=== PATIENT | female | born 1970 | race Caucasian/White ===

== ENCOUNTER 2017-01-04 15:17 | Emergency (ER) | payer OTHER ==
[~2017-01-04] VITALS: Ht 172.7 cm; Wt 109.8 kg
[~2017-01-04 15:17] MED LIST: ALAV10TA10 PO; ATOR10TA15 PO; BACT800T5 PO; CANA300T PO; CART180C4 PO; CYAN1000P SQ; CYCL-36 PO; DOXY100C PO; DULO1CAP3 PO; GABA800T PO; GEMF600 PO; LANTINJ SQ; LEVO50TA4 PO; METO5SOL2 PO; OMEG1CAP53 PO; OXYC1SOL5 PO; PROT40TA PO; RAMI5CAP PO; TAB-TAB PO; TRAM50 PO; VICT18IN SQ; [UNRECOGNIZED DRUG - OTHER] PO
[2017-01-04 15:28] VITALS: BP 147/89; PULSE 102; RESP 18; TEMP 97.5; O2SAT 98
[2017-01-04] MEDS ORDERED: ONDANSETRON HCL 4 MG/2 ML VIAL IV PUSH ONE (15:45)
[2017-01-04] MEDS ORDERED: SODIUM CHLOR 0.9% 1000 ML INJ 1,000 ML IV ONE ×2 (15:45→17:00)
[2017-01-04] MEDS ORDERED: DILT180C56 PO (15:57)
[2017-01-04] MEDS ORDERED: MULT1TAB84 PO (15:57)
[2017-01-04] MEDS ORDERED: LIDO1PAD52 TOPICAL (15:57)
[2017-01-04] MEDS ORDERED: TRAM50TA PO (15:57)
[2017-01-04] MEDS ORDERED: GEMF600T PO (15:57)
[2017-01-04] MEDS ORDERED: HYDR-3535 PO (15:57)
[2017-01-04] MEDS ORDERED: PANT40TA3 PO (15:57)
[2017-01-04] MEDS ORDERED: GABA800T PO (15:57)
[2017-01-04] MEDS ORDERED: ALAV10TA10 PO (15:57)
[2017-01-04] MEDS ORDERED: METO5TAB PO (15:57)
[2017-01-04 16:17] LABS: AUTOMATED NEUTROPHIL # 3.8 TH/MM3 (1.8-7.7); BASOPHIL % 0.5 % (0.0-2.0); EOSINOPHIL # 0.1 TH/MM3 (0-0.4); EOSINOPHIL % 1.2 % (0.0-4.0); HEMATOCRIT 37.4 % (35.0-46.0); HEMO FLAGS DIFF FINAL; LYMPH % 35.3 % (9.0-44.0); LYMPHOCYTE # 2.4 TH/MM3 (1.0-4.8); MEAN CELL VOLUME 85.5 FL (80.0-100.0); MEAN CORPUSCULAR HEMOGLOBIN 28.8 PG (27.0-34.0); MEAN CORPUSCULAR HGB CONC 33.7 % (32.0-36.0); MONO % 6.3 % (0.0-8.0); NEUT % 56.7 % (16.0-70.0); PLATELET COUNT 200 TH/MM3 (150-450); RED BLOOD COUNT 4.38 MIL/MM3 (4.00-5.30); RED CELL DISTRIBUTION WIDTH 14.2 % (11.6-17.2); WHITE BLOOD COUNT 6.7 TH/MM3 (4.0-11.0)
[2017-01-04 16:25] LABS: CHLORIDE 108 MEQ/L (98-107); POTASSIUM 3.7 MEQ/L (3.5-5.1); SODIUM (NA) 140 MEQ/L (136-145)
[2017-01-04 16:28] LABS: ANION GAP 14 MEQ/L (5-15); BICARBONATE 18.2 MEQ/L (21.0-32.0); BLOOD UREA NITROGEN 28 MG/DL (7-18)
[2017-01-04 16:31] LABS: ALT (GPT) 37 U/L (10-53); AST (GOT) 21 U/L (15-37); GLOMERULAR FILTRATION RATE 60 ML/MIN (>89)
[2017-01-04 16:33] LABS: TOTAL BILIRUBIN ADULT 0.3 MG/DL (0.2-1.0)
[2017-01-04 16:34] LABS: ALKALINE PHOSPHATASE 67 U/L (45-117)
[2017-01-04] MEDS ORDERED: LOMO2.5T PO (17:12)
[2017-01-04] MEDS ORDERED: ZOFR4TAB3 SL (17:12)
--- NOTE | 2017-01-04 17:12 | PD ---
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 She has had some nausea and decreased appetite. She denies any fevers or chills. She did take an antibiotic for skin infection and completed it 2 weeks ago. PFSH Past Medical History Cancer: No Cardiovascular Problems: No High Cholesterol: Yes Diabetes: Yes Patient Takes Glucophage: No Diminished Hearing: No Glaucoma: No Genitourinary: Yes (kidney disease) Headaches: Yes Hepatitis: No Hiatal Hernia: No Hypertension: Yes Medical other: No Respiratory: No Immunizations Current: Yes Thyroid Disease: No Influenza Vaccination: Yes ?: Not LMP: MENOPAUSAL Past Surgical History Abdominal Surgery: Yes (APPY) Section: Yes Gynecologic Surgery: Yes (C SECTION) Pacemaker: No Other Surgery: Yes (carpal tunnel, bunyon) Social History Alcohol Use: Yes (OCCASIONAL) Tobacco Use: Yes (ecig) Substance Use: No Allergies-Medications (Allergen,Severity, Reaction): Coded Allergies: No Known Allergies (Verified , 02/16/15) Reported Meds & Prescriptions Reported Meds & Active Scripts Active Reported Lidocaine Patch 12 HR (Lidocaine) 5 % Patch 1 Patch TOPICAL DAILY Remove patch after 12 hours Multivitamin Adults (Multiple Vitamins W/ Minerals) 1 Tab 1 Tab PO DAILY Alavert (Loratadine) 10 Mg Tab 10 Mg PO DAILY Lortab (Hydrocodone-Acetaminophen) 10-325 Mg Tab 1 Tab PO TID Tramadol (Tramadol HCl) 50 Mg Tab 50 Mg PO BID Diltiazem CD 24 HR 180 Mg Caper 180 Mg PO DAILY Metoclopramide (Metoclopramide HCl) 5 Mg Tab 5 Mg PO TIDAC Pantoprazole (Pantoprazole Sodium) 40 Mg Tab 40 Mg PO DAILY Gemfibrozil 600 Mg Tab 600 Mg PO BIDAC Take 30 minutes prior to breakfast and dinner. Gabapentin 800 Mg Tab 1,200 Mg PO HS Atorvastatin (Atorvastatin Calcium) 10 Mg Tab 10 Mg PO HS Duloxetine DR (Duloxetine HCl) 60 Mg Capdr 60 Mg PO BID Invokana (Canagliflozin) 300 Mg Tab 300 Mg PO DAILY Take before 1st meal of day. Lantus Solostar Pen Inj (Insulin Glargine) 300 Unit/3 Ml Pen 1 Units SQ Cyanocobalamin Inj (Cyanocobalamin) 1,000 Mcg/Ml Inj 1,000 Mcg SQ Q30D Gabapentin 800 Mg Tab 800 Mg PO BID Ramipril 5 Mg Cap 5 Mg PO BID Lovaza (Mfhgh-5-Gjrl Ethyl Esters) 1 Gm Cap 1 Gm PO QID Levothyroxine (Levothyroxine Sodium) 50 Mcg Tab 50 Mcg PO DAILY [Ulroc] 80 Mg PO DAILY Review of Systems Except as stated in HPI: all other systems reviewed are Neg Physical Exam Narrative GENERAL:Well appearing, no acute distress SKIN: Focused skin assessment warm and dry. HEAD: Atraumatic. Normocephalic. EYES: Pupils equal and round. No injection or drainage. ENT: Moist mucous membranes NECK: Trachea midline. CARDIOVASCULAR: Regular rate and rhythm. No murmur appreciated. RESPIRATORY: Clear to auscultation. Breath sounds equal bilaterally. GASTROINTESTINAL: Abdomen soft, mildly tender to palpation in the lower abdomen with no rebound or guarding. MUSCULOSKELETAL: No obvious deformities. NEUROLOGICAL: Awake and alert. No obvious cranial nerve deficits. Moving all extremities. PSYCHIATRIC: Appropriate mood and affect; insight and judgment normal. Data Data Last Documented VS Vital Signs Date Time Temp Pulse Resp B/P Pulse Ox O2 Delivery O2 Flow Rate FiO2 01/04/17 15:28 97.5 102 18 147/89 98 Room Air Orders Complete Blood Count With Diff (01/04/17 15:45) Comprehensive Metabolic Panel (01/04/17 15:45) Ondansetron Inj (Zofran Inj) (01/04/17 15:45) Sodium Chlor 0.9% 1000 Ml Inj (Ns 1000 M (01/04/17 15:45) Sodium Chlor 0.9% 1000 Ml Inj (Ns 1000 M (01/04/17 17:00) Labs Laboratory Tests Test 01/04/17 16:00 White Blood Count 6.7 TH/MM3 Red Blood Count 4.38 MIL/MM3 Hemoglobin 12.6 GM/DL Hematocrit 37.4 % Mean Corpuscular Volume 85.5 FL Mean Corpuscular Hemoglobin 28.8 PG Mean Corpuscular Hemoglobin 33.7 % Concent Red Cell Distribution Width 14.2 % Platelet Count 200 TH/MM3 Mean Platelet Volume 7.8 FL Neutrophils (%) (Auto) 56.7 % Lymphocytes (%) (Auto) 35.3 % Monocytes (%) (Auto) 6.3 % Eosinophils (%) (Auto) 1.2 % Basophils (%) (Auto) 0.5 % Neutrophils # (Auto) 3.8 TH/MM3 Lymphocytes # (Auto) 2.4 TH/MM3 Monocytes # (Auto) 0.4 TH/MM3 Eosinophils # (Auto) 0.1 TH/MM3 Basophils # (Auto) 0.0 TH/MM3 CBC Comment DIFF FINAL Differential Comment Sodium Level 140 MEQ/L Potassium Level 3.7 MEQ/L Chloride Level 108 MEQ/L Carbon Dioxide Level 18.2 MEQ/L Anion Gap 14 MEQ/L Blood Urea Nitrogen 28 MG/DL Creatinine 1.00 MG/DL Estimat Glomerular Filtration 60 ML/MIN Rate Random Glucose 109 MG/DL Calcium Level 9.5 MG/DL Total Bilirubin 0.3 MG/DL Aspartate Amino Transf 21 U/L (AST/SGOT) Alanine Aminotransferase 37 U/L (ALT/SGPT) Alkaline Phosphatase 67 U/L Total Protein 7.8 GM/DL Albumin 3.8 GM/DL MDM Medical Decision Making Medical Screen Exam Complete: Yes Emergency Medical Condition: Yes Interpretation(s) Afebrile, mild tachycardia, hypertensive No leukocytosis BUN is slightly elevated Bicarbonate is slightly low Differential Diagnosis Dehydration, electrolyte abnormality, opportunistic infection, C. difficile colitis, gastroenteritis Narrative Course This is a 46-year-old female who presents to the emergency department with copious diarrhea for 2 days. She has a history of renal failure. Labs were obtained and are reassuring with a GFR of 60. She does have a slightly low bicarbonate in the setting of diarrhea. She was given 2 L of IV hydration. I think she can be managed as an outpatient. I considered C. difficile colitis but given her labs are completely normal I think it's unlikely. Her stool was sent for C. difficile and culture. Patient will be discharged on Lomotil and can follow-up with her primary care physician. Diagnosis Primary Impression: Diarrhea Qualified Code: A09 - Diarrhea of presumed infectious origin Patient Instructions: General Instructions Additional Instructions: If you develop severe or worsening abdominal pain, fever>100.4, persistent vomiting or inability to eat or drink return to the emergency department immediately. Follow up with your primary care physician in 1-2 days for a check-up. Med/Other Pt SpecificInfo: Prescription(s) given Scripts Ondansetron Odt (Zofran Odt)4 Mg Tab4 Mg SL Q6HR PRN (Nausea/Vomiting) #14 TAB Ref 0 Prov:Jahaira Vaughn MD 01/04/17 Diphenoxylate-Atropine (Lomotil)2.5-0.025 Mg Tab1 Tab PO Q6H PRN (DIARRHEA) #12 TAB Ref 0 Prov:Jahaira Vaughn MD 01/04/17 Disposition: 01 DISCHARGE HOME Condition: Stable Jahaira Vaughn MD Jan 04, 2017 17:12
[2017-01-04 17:57] VITALS: BP 145/69; PULSE 87; RESP 16; O2SAT 95
[2017-01-05 08:59] LABS: C. DIFF EPI 027 INVALID (NEGATIVE); C. DIFF TOXIN PCR INVALID (NEGATIVE)
== END 2017-01-04 18:25 | disposition home or self-care (01) ==
LOC: PHED 15:17
DX: A09 Infectious gastroenteritis and colitis, unspecified (principal); I10 Essential (primary) hypertension; E11.9 Type 2 diabetes mellitus without complications; N19 Unspecified kidney failure; E78.00 Pure hypercholesterolemia, unspecified; Z72.0 Tobacco use; Z79.4 Long term (current) use of insulin; Z87.448 Personal history of other diseases of urinary system
CPT/HCPCS: 80053; 85025; 87493; 87506; 96361; 96374; 99284; J2405; J7030

== ENCOUNTER 2017-05-08 20:58 | Emergency (ER) | payer OTHER ==
[~2017-05-08] VITALS: Ht 172.7 cm; Wt 115.0 kg
[~2017-05-08 20:58] MED LIST changes: -BACT800T5 PO; -CART180C4 PO; -CYCL-36 PO; +DILT180C56 PO; -DOXY100C PO; -GEMF600 PO; +GEMF600T PO; +HYDR-3535 PO; +LIDO1PAD52 TOPICAL; +LOMO2.5T PO; -METO5SOL2 PO; +METO5TAB PO; +MULT1TAB84 PO; -OXYC1SOL5 PO; +PANT40TA3 PO; -PROT40TA PO; -TAB-TAB PO; -TRAM50 PO; +TRAM50TA PO; -VICT18IN SQ; +ZOFR4TAB3 SL
[2017-05-08 21:09] VITALS: BP 123/71; PULSE 95; RESP 16; TEMP 98.5; O2SAT 97
[2017-05-08] MEDS ORDERED: DILT120C9 PO (21:21)
[2017-05-08] MEDS ORDERED: ULOR80TA2 (21:21)
[2017-05-08] MEDS ORDERED: GABA800T PO (21:22)
[2017-05-08] MEDS ORDERED: SODI650T PO (21:24)
[2017-05-08] MEDS ORDERED: PROG100C PO (21:24)
[2017-05-08] MEDS ORDERED: CLINDAMYCIN INJ 900 MG in SODIUM CHLORIDE 0.9% INJ 100 ML IV ONE (21:30)
[2017-05-08 21:42] LABS: AUTOMATED NEUTROPHIL # 3.6 TH/MM3 (1.8-7.7); BASOPHIL % 0.4 % (0.0-2.0); EOSINOPHIL # 0.1 TH/MM3 (0-0.4); EOSINOPHIL % 1.1 % (0.0-4.0); HEMATOCRIT 32.2 % (35.0-46.0); HEMO FLAGS DIFF FINAL; LYMPH % 39.8 % (9.0-44.0); LYMPHOCYTE # 2.6 TH/MM3 (1.0-4.8); MEAN CELL VOLUME 86.5 FL (80.0-100.0); MEAN CORPUSCULAR HEMOGLOBIN 29.2 PG (27.0-34.0); MEAN CORPUSCULAR HGB CONC 33.8 % (32.0-36.0); MONO % 5.9 % (0.0-8.0); NEUT % 52.8 % (16.0-70.0); PLATELET COUNT 201 TH/MM3 (150-450); RED BLOOD COUNT 3.73 MIL/MM3 (4.00-5.30); RED CELL DISTRIBUTION WIDTH 13.6 % (11.6-17.2); WHITE BLOOD COUNT 6.7 TH/MM3 (4.0-11.0)
[2017-05-08 21:48] LABS: POTASSIUM 4.4 MEQ/L (3.5-5.1)
[2017-05-08 21:51] LABS: BICARBONATE 22.5 MEQ/L (21.0-32.0)
[2017-05-08] MEDS ORDERED: CLIN1CAP5 PO (21:52)
--- NOTE | 2017-05-08 21:52 | PD ---
HPI Chief Complaint: Pain: Acute or Chronic Time Seen by Provider: 21:13 Travel History International Travel<30 days: No Contact w/Intl Traveler<30days: No Traveled to known affect area: No History of Present Illness HPI 47-year-old female complains of pain in the right medial thigh for about 3 days. It started gradually with a deep sensation of pain in the right thigh. Over the past 24-48 hours erythema has formed over the anterior medial aspect of the thigh which has become tender to palpation. takes progesterone and uses a estrogen gel. She denies any prior history of DVT. She was seen urgent care center and was advised to come here for a rule out DVT type of evaluation. No fever. Timing constant. Severity moderate. PFSH Past Medical History Cancer: No Cardiovascular Problems: No High Cholesterol: Yes Diabetes: Yes Patient Takes Glucophage: No Diminished Hearing: No Glaucoma: No Genitourinary: Yes (kidney disease) Headaches: Yes Hepatitis: No Hiatal Hernia: No Hypertension: Yes Respiratory: No Immunizations Current: Yes Thyroid Disease: No Tetanus Vaccination: Unknown Influenza Vaccination: Yes ?: Not Menopausal: Yes Past Surgical History Abdominal Surgery: Yes (APPY) Section: Yes Gynecologic Surgery: Yes (C SECTION) Pacemaker: No Other Surgery: Yes (carpal tunnel, bunyon) Social History Alcohol Use: Yes (OCCASIONAL) Tobacco Use: Yes (ecig) Substance Use: No Allergies-Medications (Allergen,Severity, Reaction): Coded Allergies: No Known Allergies (Verified , 05/08/17) Reported Meds & Prescriptions Reported Meds & Active Scripts Active Clindamycin (Clindamycin HCl) 150 Mg Cap 450 Mg PO Q8HR 10 Days Zofran Odt (Ondansetron Odt) 4 Mg Tab 4 Mg SL Q6HR PRN Lomotil (Diphenoxylate-Atropine) 2.5-0.025 Mg Tab 1 Tab PO Q6H PRN Reported Sodium Bicarbonate 650 Mg Tab 650 Mg PO TIDPC Progesterone Micronized 100 Mg Cap 100 Mg PO DAILY Gabapentin 800 Mg Tab 800 Mg PO TID Uloric (Febuxostat) 80 Mg Tab Diltiazem ER 12 HR (Diltiazem HCl) 120 Mg Caper 180 Mg PO BID Lidocaine Patch 12 HR (Lidocaine) 5 % Patch 1 Patch TOPICAL DAILY Remove patch after 12 hours Lortab (Hydrocodone-Acetaminophen) 10-325 Mg Tab 1 Tab PO TID Tramadol (Tramadol HCl) 50 Mg Tab 50 Mg PO BID Metoclopramide (Metoclopramide HCl) 5 Mg Tab 5 Mg PO TIDAC Pantoprazole (Pantoprazole Sodium) 40 Mg Tab 40 Mg PO DAILY Gemfibrozil 600 Mg Tab 600 Mg PO BIDAC Take 30 minutes prior to breakfast and dinner. Atorvastatin (Atorvastatin Calcium) 10 Mg Tab 10 Mg PO HS Duloxetine DR (Duloxetine HCl) 60 Mg Capdr 60 Mg PO BID Invokana (Canagliflozin) 300 Mg Tab 300 Mg PO DAILY Take before 1st meal of day. Lantus Solostar Pen Inj (Insulin Glargine) 300 Unit/3 Ml Pen 1 Units SQ Cyanocobalamin Inj (Cyanocobalamin) 1,000 Mcg/Ml Inj 1,000 Mcg SQ Q30D Ramipril 5 Mg Cap 5 Mg PO BID Lovaza (Unyjq-5-Qyth Ethyl Esters) 1 Gm Cap 1 Gm PO QID Levothyroxine (Levothyroxine Sodium) 50 Mcg Tab 50 Mcg PO DAILY Review of Systems Except as stated in HPI: all other systems reviewed are Neg General / Constitutional: No: Fever Physical Exam Narrative GENERAL: 47-year-old female well-nourished well-developed mild distress secondary to pain SKIN: Warm and dry. HEAD: Atraumatic. Normocephalic. EYES: Pupils equal and round. No scleral icterus. No injection or drainage. ENT: No nasal bleeding or discharge. Mucous membranes pink and moist. NECK: Trachea midline. No JVD. CARDIOVASCULAR: Regular rate and rhythm. RESPIRATORY: No accessory muscle use. Clear to auscultation. Breath sounds equal bilaterally. GASTROINTESTINAL: Abdomen soft, non-tender, nondistended. Hepatic and splenic margins not palpable. MUSCULOSKELETAL: Extremities without clubbing, cyanosis. No obvious deformities. There is a confluent area of erythema overlying the anterior and medial right thigh from the region of the inguinal crease to about the medial condyle. The area is somewhat indurated and tender. There is no fluctuance. NEUROLOGICAL: Awake and alert. No obvious cranial nerve deficits. Motor grossly within normal limits. Five out of 5 muscle strength in the arms and legs. Normal speech. PSYCHIATRIC: Appropriate mood and affect; insight and judgment normal. Data Data Last Documented VS Vital Signs Date Time Temp Pulse Resp B/P Pulse Ox O2 Delivery O2 Flow Rate FiO2 05/08/17 23:01 90 16 114/61 95 05/08/17 21:09 98.5 Vital signs reviewed Orders Basic Metabolic Panel (Bmp) (05/08/17 21:20) Complete Blood Count With Diff (05/08/17 21:20) Iv Access Insert/Monitor (05/08/17 21:20) Clindamycin Inj (Cleocin Inj) (05/08/17 21:30) Us Leg Venous Doppler (05/08/17 ) Labs Laboratory Tests Test 05/08/17 21:38 White Blood Count 6.7 TH/MM3 Red Blood Count 3.73 MIL/MM3 Hemoglobin 10.9 GM/DL Hematocrit 32.2 % Mean Corpuscular Volume 86.5 FL Mean Corpuscular Hemoglobin 29.2 PG Mean Corpuscular Hemoglobin 33.8 % Concent Red Cell Distribution Width 13.6 % Platelet Count 201 TH/MM3 Mean Platelet Volume 7.4 FL Neutrophils (%) (Auto) 52.8 % Lymphocytes (%) (Auto) 39.8 % Monocytes (%) (Auto) 5.9 % Eosinophils (%) (Auto) 1.1 % Basophils (%) (Auto) 0.4 % Neutrophils # (Auto) 3.6 TH/MM3 Lymphocytes # (Auto) 2.6 TH/MM3 Monocytes # (Auto) 0.4 TH/MM3 Eosinophils # (Auto) 0.1 TH/MM3 Basophils # (Auto) 0.0 TH/MM3 CBC Comment DIFF FINAL Differential Comment Sodium Level 134 MEQ/L Potassium Level 4.4 MEQ/L Chloride Level 103 MEQ/L Carbon Dioxide Level 22.5 MEQ/L Anion Gap 9 MEQ/L Blood Urea Nitrogen 26 MG/DL Creatinine 1.30 MG/DL Estimat Glomerular Filtration 44 ML/MIN Rate Random Glucose 223 MG/DL Calcium Level 9.1 MG/DL MDM Medical Decision Making Medical Screen Exam Complete: Yes Emergency Medical Condition: Yes Medical Record Reviewed: Yes Differential Diagnosis Cellulitis, DVT, abscess, myositis, thrombophlebitis Narrative Course CBC & BMP Diagram 05/08/17 21:38 Renal insufficiency is known to patient. Last 24 hours Impressions Lower Extremity Ultrasound 05/08/17 0000 Signed Impressions: Service Date/Time: Monday, May 08, 2017 22:10 - CONCLUSION: The study is negative for deep venous thrombosis right lower extremity. Nba Ulloa MD Presentation most in keeping with a cellulitis. Clindamycin 900mg iv here with script to go. Return precautions discussed. Diagnosis Primary Impression: Cellulitis Qualified Code: L03.115 - Cellulitis of right lower extremity Referrals: Primary Care Physician 2 days Additional Instructions: You have a choice when it comes to health care, and we are glad that you chose [facility]. Hopefully, we have met your expectations on today's visit. You are welcome to return to [facility] at any time, as we are committed to meeting the health care needs of our community. Med/Other Pt SpecificInfo: Prescription(s) given Scripts Clindamycin 150 Mg [id number] Mg PO Q8HR 10 Days Ref 0 Prov:Genaro Ruth MD 05/08/17 Disposition: 01 DISCHARGE HOME Condition: Stable Genaro Ruth MD May 08, 2017 21:52
--- NOTE | 2017-05-08 22:53 | RADRPT ---
EXAM DATE/TIME: 05/08/2017 22:10 [facility] COMPARISON: No previous studies available for comparison. INDICATIONS : Right leg swelling. MEDICAL HISTORY : Hypercholesterolemia. Hypertension. Kidney disease. Headache. Proteinuria. Diabetes. SURGICAL HISTORY : Appendectomy. section. Carpal tunnel syndrome. Right knee arthroscopy. ENCOUNTER: Initial ACUITY: 4 - 6 days PAIN SCORE: 8/10 LOCATION: Right TECHNIQUE: Venous ultrasound of the leg was performed from the inguinal ligament to the proximal calf. Real-trina e, color Doppler and spectral tracing, compression and augmentation techniques were used. FINDINGS: There is normal compressibility of the deep venous system from the inguinal region to the proximal ca lf. No echogenic clot is seen in the lumen of the common femoral, femoral, popliteal, and posterior tibial veins. There is a normal response of the venous system to proximal and distal augmentation an d respiration. Several sonographically normal appearing inguinal lymph nodes measure up to 3 cm. CONCLUSION: The study is negative for deep venous thrombosis right lower extremity. Nba Ulloa MD on May 08, 2017 at 22:51 Board Certified Radiologist. This report was verified electronically.
[2017-05-08 23:01] VITALS: BP 114/61
== END 2017-05-08 23:13 | disposition home or self-care (01) ==
LOC: PHED 20:58
DX: L03.115 Cellulitis of right lower limb (principal); E11.9 Type 2 diabetes mellitus without complications; I10 Essential (primary) hypertension; E78.00 Pure hypercholesterolemia, unspecified; Z72.0 Tobacco use; Z79.4 Long term (current) use of insulin; Z86.79 Personal history of other diseases of the circulatory system; Z87.448 Personal history of other diseases of urinary system
CPT/HCPCS: 80048; 85025; 93971; 96365

== ENCOUNTER 2018-02-04 08:40 | Inpatient (IN) | payer OTHER ==
[~2018-02-04] VITALS: Ht 172.7 cm; Wt 112.5 kg
[2018-02-04] VITALS (9 sets, daily range): BP systolic 147–180; BP diastolic 79–99; PULSE 87–104; RESP 16–20; TEMP 97.6–98.6; O2SAT 94–98
[~2018-02-04 08:40] MED LIST changes: -ALAV10TA10 PO; +CLIN150C14 PO; +DILT120C9 PO; -DILT180C56 PO; -MULT1TAB84 PO; +PROG100C PO; +SODI650T PO; +ULOR80TA2; -[UNRECOGNIZED DRUG - OTHER] PO
[2018-02-04] MEDS ORDERED: RAMI5CAP PO (09:06)
[2018-02-04] MEDS ORDERED: PANT40TA3 PO (09:06)
[2018-02-04] MEDS ORDERED: VICT18IN SQ (09:06)
[2018-02-04] MEDS ORDERED: OXYC1TAB36 PO (09:06)
[2018-02-04] MEDS ORDERED: ESTR0.5T3 PO (09:06)
[2018-02-04] MEDS ORDERED: CYCL10TA PO (09:06)
[2018-02-04] MEDS ORDERED: KETOROLAC TROMETHAMINE 60 MG/2 ML (IM) VIAL IM ONE (09:30)
[2018-02-04] MEDS ORDERED: DIAZEPAM 5 MG TAB PO ONE (09:30)
--- NOTE | 2018-02-04 09:38 | PD ---
HPI Chief Complaint: Musculoskeletal Complaint Time Seen by Provider: 09:09 Travel History International Travel<30 days: No Contact w/Intl Traveler<30days: No Traveled to known affect area: No History of Present Illness HPI This is a 48-year-old female here with upper back and bilateral arm pain 4 days. She denies injury or trauma. She reports the pain as constant aching. Pain starts in her trapezius muscles and radiates to her jaws bilaterally, across her chest, and upper extremities. She had one episode of nausea and vomiting due to pain last night. Does have a history of chronic back pain but reports this pain feels different. She took a muscle relaxer yesterday evening with minimal relief. No fever, chills, shortness of breath, paresthesia or weakness of the extremities. Symptom severity is moderate. No aggravating or alleviating factors. Cardiac risk factors: Hypertension, dyslipidemia, diabetes, smoker PCP: Dr. Glover No prior stress tests or cardiac catheterization PFSH Past Medical History Narrative Medical Significant for hypertension, dyslipidemia, diabetes, hypothyroidism Cancer: No Cardiovascular Problems: No High Cholesterol: Yes Diabetes: Yes Patient Takes Glucophage: No Diminished Hearing: No Glaucoma: No Genitourinary: Yes (kidney disease) Headaches: Yes Hepatitis: No Hiatal Hernia: No Hypertension: Yes Medical other: No Respiratory: No Immunizations Current: Yes Thyroid Disease: No Tetanus Vaccination: Unknown ?: Not Menopausal: Yes Past Surgical History Abdominal Surgery: Yes (APPY) Section: Yes Gynecologic Surgery: Yes (C SECTION) Pacemaker: No Other Surgery: Yes (carpal tunnel, bunyon) Social History Alcohol Use: Yes (OCCASIONAL) Tobacco Use: Yes (ecig) Substance Use: No Allergies-Medications (Allergen,Severity, Reaction): Coded Allergies: No Known Allergies (Verified Adverse Reaction, Unknown, 02/04/18) Reported Meds & Prescriptions Reported Meds & Active Scripts Active Reported Estrace (Estradiol) 0.5 Mg Tab 0.5 Mg PO DAILY Victoza Inj (Liraglutide Inj) 18 Mg/3 Ml Pen 1.8 Mg SQ DAILY Oxycodone-Acetaminophen 10-325 mg Tab 1 Tab PO Q8HR PRN Ramipril 5 Mg Cap 5 Mg PO DAILY Flexeril (Cyclobenzaprine HCl) 10 Mg Tab 10 Mg PO BID Pantoprazole (Pantoprazole Sodium) 40 Mg Tab 40 Mg PO BID Progesterone Micronized 100 Mg Cap 100 Mg PO DAILY Gabapentin 800 Mg Tab 800 Mg PO TID Uloric (Febuxostat) 80 Mg Tab Lidocaine Patch 12 HR (Lidocaine) 5 % Patch 1 Patch TOPICAL DAILY Remove patch after 12 hours Tramadol (Tramadol HCl) 50 Mg Tab 50 Mg PO BID Metoclopramide (Metoclopramide HCl) 5 Mg Tab 5 Mg PO TIDAC Atorvastatin (Atorvastatin Calcium) 10 Mg Tab 10 Mg PO HS Duloxetine DR (Duloxetine HCl) 60 Mg Capdr 60 Mg PO BID Invokana (Canagliflozin) 300 Mg Tab 300 Mg PO DAILY Take before 1st meal of day. Lantus Solostar Pen Inj (Insulin Glargine) 300 Unit/3 Ml Pen 1 Units SQ Cyanocobalamin Inj (Cyanocobalamin) 1,000 Mcg/Ml Inj 1,000 Mcg SQ Q30D Lovaza (Rwybo-8-Soop Ethyl Esters) 1 Gm Cap 1 Gm PO QID Levothyroxine (Levothyroxine Sodium) 50 Mcg Tab 50 Mcg PO DAILY Review of Systems Except as stated in HPI: all other systems reviewed are Neg General / Constitutional: No: Fever Eyes: No: Visual changes HENT: No: Headaches Cardiovascular: Positive: Chest Pain or Discomfort Respiratory: No: Shortness of Breath Gastrointestinal: Positive: Vomiting, No: Abdominal Pain Genitourinary: No: Dysuria Skin: No Rash Neurologic: No: Weakness Physical Exam Narrative GENERAL: Alert female in moderate distress. SKIN: Warm and dry. No diaphoresis HEAD: Normocephalic. EYES: No scleral icterus. No injection or drainage. NECK: Supple, trachea midline. No JVD or lymphadenopathy. + Acute tenderness to light touch of bilateral trapezius muscles. CARDIOVASCULAR: Regular rate and rhythm without murmurs, gallops, or rubs. RESPIRATORY: Breath sounds equal bilaterally. No accessory muscle use. GASTROINTESTINAL: Abdomen soft, non-tender, nondistended. MUSCULOSKELETAL: No cyanosis, or edema. Palpable and equal pulses in all extremities BACK: No cervical, thoracic, lumbar spine tenderness. Without obvious deformity. No CVA tenderness. Data Data Last Documented VS Vital Signs Date Time Temp Pulse Resp B/P (MAP) Pulse Ox O2 Delivery O2 Flow Rate FiO2 02/04/18 11:03 95 20 153/79 (103) 97 Nasal Cannula 2.00 02/04/18 08:47 97.6 Orders Orders Electrocardiogram (02/04/18 ) Ketorolac Inj (Toradol Inj) (02/04/18 09:30) Diazepam (Valium) (02/04/18 09:30) Basic Metabolic Panel (Bmp) (02/04/18 09:48) Ckmb (Isoenzyme) Profile (02/04/18 09:48) Complete Blood Count With Diff (02/04/18 09:48) Prothrombin Time / Inr (Pt) (02/04/18 09:48) Act Partial Throm Time (Ptt) (02/04/18 09:48) Troponin I (02/04/18 09:48) Chest, Single Ap (02/04/18 09:48) Bilateral Bp Monitoring (02/04/18 09:48) Iv Access Insert/Monitor (02/04/18 09:48) Aspirin (Aspirin) (02/04/18 10:45) CKMB (02/04/18 09:55) CKMB% (02/04/18 09:55) Nitroglycerin 2% Oint (Nitroglycerin 2% (02/04/18 10:45) Heparin Inj (Heparin Inj) (02/04/18 11:00) Heparin Inj (Heparin Inj) (02/04/18 17:00) Heparin Inj (Heparin Inj) (02/04/18 17:00) Heparin-D5w 25,000 U/250 Ml (Heparin-D5w (02/04/18 11:00) Cbc No Diff, Includes Plts (02/07/18 06:00) Act Partial Throm Time (Ptt) (02/04/18 17:47) Occult Blood (Hemoccult) Stool (02/04/18 10:47) Electrocardiogram (02/04/18 10:17) NPO (02/04/18 10:54) Metoprolol Tartrate Inj (Lopressor Inj) (02/04/18 11:00) Cardiac Catheterization (02/04/18 ) Admit Order (Ed Use Only) (02/04/18 11:05) Labs Laboratory Tests Test 02/04/18 09:55 White Blood Count 10.1 TH/MM3 Red Blood Count 4.56 MIL/MM3 Hemoglobin 13.3 GM/DL Hematocrit 38.4 % Mean Corpuscular Volume 84.2 FL Mean Corpuscular Hemoglobin 29.1 PG Mean Corpuscular Hemoglobin Concent 34.5 % Red Cell Distribution Width 14.4 % Platelet Count 105 TH/MM3 Mean Platelet Volume 7.8 FL CBC Comment AUTO DIFF Differential Total Cells Counted 100 Neutrophils % (Manual) 84 % Band Neutrophils % 1 % Lymphocytes % 11 % Monocytes % 3 % Eosinophils % 1 % Neutrophils # (Manual) 8.6 TH/MM3 Differential Comment FINAL DIFF MANUAL Platelet Estimate LOW Platelet Morphology Comment NORMAL Prothrombin Time 9.7 SEC Prothromb Time International Ratio 1.0 RATIO Activated Partial Thromboplast Time 25.3 SEC Blood Urea Nitrogen 22 MG/DL Creatinine 0.80 MG/DL Random Glucose 170 MG/DL Calcium Level 8.6 MG/DL Sodium Level 133 MEQ/L Potassium Level 4.3 MEQ/L Chloride Level 102 MEQ/L Carbon Dioxide Level 19.9 MEQ/L Anion Gap 11 MEQ/L Estimat Glomerular Filtration Rate 77 ML/MIN Total Creatine Kinase 525 U/L Creatine Kinase MB 59.3 NG/ML Creatine Kinase MB % 11.3 % Troponin I 5.69 NG/ML MDM Medical Decision Making Medical Screen Exam Complete: Yes Emergency Medical Condition: Yes Interpretation(s) EKG: Reviewed with Dr. Baker Differential Diagnosis ACS, muscle skeletal back pain, other Narrative Course 48-year-old female here with upper back, jaw, chest pain. Symptoms been present for 4 days with increased frequency and intensity over the last 12 hours. Teresa Rendon February 04, 2018 09:38
[2018-02-04 10:01] LABS: HEMATOCRIT 38.4 % (35.0-46.0); HEMOGLOBIN 13.3 GM/DL (11.6-15.3); MEAN CELL VOLUME 84.2 FL (80.0-100.0); MEAN CORPUSCULAR HEMOGLOBIN 29.1 PG (27.0-34.0); MEAN CORPUSCULAR HGB CONC 34.5 % (32.0-36.0); MEAN PLATELET VOLUME 7.8 FL (7.0-11.0); PLATELET COUNT 105 TH/MM3 (150-450); RED BLOOD COUNT 4.56 MIL/MM3 (4.00-5.30); RED CELL DISTRIBUTION WIDTH 14.4 % (11.6-17.2); WHITE BLOOD COUNT 10.1 TH/MM3 (4.0-11.0)
--- NOTE | 2018-02-04 10:06 | RADRPT ---
EXAM DATE/TIME: 02/04/2018 09:57 [facility] COMPARISON: No previous studies available for comparison. INDICATIONS : Chest pain, pain down both arms and in back. MEDICAL HISTORY : Hypertension. Diabetes mellitus type II. SURGICAL HISTORY : None. ENCOUNTER: Initial ACUITY: 4 - 6 days PAIN SCORE: 10/10 LOCATION: Bilateral chest FINDINGS: Portable AP view of the chest demonstrates a normal-sized cardiac silhouette. No effusion, consolidat ion, or pneumothorax is visualized. The bones and soft tissues demonstrate no acute abnormality. Lung s are mildly underinflated. CONCLUSION: No acute cardiopulmonary abnormality is identified. Eliazar Joy MD on February 04, 2018 at 10:03 Board Certified Radiologist. This report was verified electronically.
[2018-02-04 10:12] LABS: CALCIUM 8.6 MG/DL (8.5-10.1); PROTHROMBIN TIME - PATIENT 9.7 SEC (9.8-11.6)
[2018-02-04 10:13] LABS: BICARBONATE 19.9 MEQ/L (21.0-32.0)
[2018-02-04 10:19] LABS: CREATININE 0.8 MG/DL (0.50-1.00)
[2018-02-04 10:27] LABS: BANDS 1 % (0-6); LYMPHOCYTES 11 % (9-44); MONOCYTES 3 % (0-8); NEUTROPHIL # MANUAL DIFF 8.6 TH/MM3 (1.8-7.7); POLYS (SEG NEUTROPHILS) 84 % (16-70)
[2018-02-04 10:39] LABS: TROPONIN I 5.69 NG/ML (0.02-0.05)
[2018-02-04] MEDS ORDERED: ASPIRIN 325 MG TAB PO ONE (10:45)
[2018-02-04] MEDS ORDERED: NITROGLYCERIN 2% OINT 1 GM PACKET TOP ONE (10:45)
--- NOTE | 2018-02-04 10:47 | PD ---
Physical Exam Narrative GENERAL: SKIN: Warm and dry. HEAD: Atraumatic. Normocephalic. EYES: Pupils equal and round. No scleral icterus. No injection or drainage. ENT: No nasal bleeding or discharge. Mucous membranes pink and moist. NECK: Trachea midline. No JVD. CARDIOVASCULAR: Regular rate and rhythm. RESPIRATORY: No accessory muscle use. Clear to auscultation. Breath sounds equal bilaterally. GASTROINTESTINAL: Abdomen soft, non-tender, nondistended. MUSCULOSKELETAL: Extremities without clubbing, cyanosis, or edema. No obvious deformities. NEUROLOGICAL: Awake and alert. No obvious cranial nerve deficits. Motor grossly within normal limits. Five out of 5 muscle strength in the arms and legs. Normal speech. PSYCHIATRIC: Appropriate mood and affect; insight and judgment normal. Data Data Last Documented VS Vital Signs Date Time Temp Pulse Resp B/P (MAP) Pulse Ox O2 Delivery O2 Flow Rate FiO2 02/04/18 08:47 97.6 90 16 180/97 (124) 98 Orders Orders Electrocardiogram (02/04/18 ) Ketorolac Inj (Toradol Inj) (02/04/18 09:30) Diazepam (Valium) (02/04/18 09:30) Basic Metabolic Panel (Bmp) (02/04/18 09:48) Ckmb (Isoenzyme) Profile (02/04/18 09:48) Complete Blood Count With Diff (02/04/18 09:48) Prothrombin Time / Inr (Pt) (02/04/18 09:48) Act Partial Throm Time (Ptt) (02/04/18 09:48) Troponin I (02/04/18 09:48) Chest, Single Ap (02/04/18 09:48) Bilateral Bp Monitoring (02/04/18 09:48) Iv Access Insert/Monitor (02/04/18 09:48) Aspirin (Aspirin) (02/04/18 10:45) CKMB (02/04/18 09:55) CKMB% (02/04/18 09:55) Nitroglycerin 2% Oint (Nitroglycerin 2% (02/04/18 10:45) Heparin Inj (Heparin Inj) (02/04/18 11:00) Heparin Inj (Heparin Inj) (02/04/18 17:00) Heparin Inj (Heparin Inj) (02/04/18 17:00) Heparin-D5w 25,000 U/250 Ml (Heparin-D5w (02/04/18 11:00) Act Partial Throm Time (Ptt) (02/04/18 10:47) Cbc No Diff, Includes Plts (02/04/18 10:47) Cbc No Diff, Includes Plts (02/07/18 06:00) Act Partial Throm Time (Ptt) (02/04/18 17:47) Occult Blood (Hemoccult) Stool (02/04/18 10:47) Electrocardiogram (02/04/18 10:17) NPO (02/04/18 10:54) Metoprolol Tartrate Inj (Lopressor Inj) (02/04/18 11:00) Labs Laboratory Tests Test 02/04/18 09:55 White Blood Count 10.1 TH/MM3 Red Blood Count 4.56 MIL/MM3 Hemoglobin 13.3 GM/DL Hematocrit 38.4 % Mean Corpuscular Volume 84.2 FL Mean Corpuscular Hemoglobin 29.1 PG Mean Corpuscular Hemoglobin Concent 34.5 % Red Cell Distribution Width 14.4 % Platelet Count 105 TH/MM3 Mean Platelet Volume 7.8 FL CBC Comment AUTO DIFF Differential Total Cells Counted 100 Neutrophils % (Manual) 84 % Band Neutrophils % 1 % Lymphocytes % 11 % Monocytes % 3 % Eosinophils % 1 % Neutrophils # (Manual) 8.6 TH/MM3 Differential Comment FINAL DIFF MANUAL Platelet Estimate LOW Platelet Morphology Comment NORMAL Prothrombin Time 9.7 SEC Prothromb Time International Ratio 1.0 RATIO Activated Partial Thromboplast Time 25.3 SEC Blood Urea Nitrogen 22 MG/DL Creatinine 0.80 MG/DL Random Glucose 170 MG/DL Calcium Level 8.6 MG/DL Sodium Level 133 MEQ/L Potassium Level 4.3 MEQ/L Chloride Level 102 MEQ/L Carbon Dioxide Level 19.9 MEQ/L Anion Gap 11 MEQ/L Estimat Glomerular Filtration Rate 77 ML/MIN Total Creatine Kinase 525 U/L Troponin I 5.69 NG/ML [facility] Medical Record Reviewed: Yes Supervised Visit with RYAN: Yes Interpretation(s) Patient's EKG showed prominent occluded Q waves on 3 and aVF with a minimal ST elevation of 1 mm on 3 8 but aVF was a half a millimeter inverted T waves on 3 and aVF, but no contralateral ST depressions noted anywhere else. This was most consistent with a ongoing ischemic changes rather than acute STEMI. Differential Diagnosis Atypical chest pain versus musculoskeletal versus non-STEMI versus STEMI Narrative Course Regulation profile is within normal limits No leukocytosis, no anemia, slight thrombocytopenia 105,000, Electrolytes are within normal limits with the exception of random glucose of 170, troponin is 5.69 GFR 77 and creatinine is 0.8 Critical Care Narrative CRITICAL CARE NOTE: With evaluation of the patient, labs, EKG, receipt of radiologic studies, administration of medications, reevaluation the patient and discussion of the patient with the admitting physicians, the total critical care time was [45] minutes. Time to perform other separately billable procedures was not included in the critical care time. Physician Communication Physician Communication Discussed case with , who agrees with the current treatment of aspirin nitro metoprolol as well as heparin. Also agrees with the transfer to the [facility] for catheterization, he plans on doing the catheterization in the afternoon. Requesting admission to CICU by [facility] along with a urgent/emergency transfer. Diagnosis Primary Impression: Acute inferior non-STEMI Additional Impression: Accelerated hypertension Disposition: 70 TRANSFER TO OTHER FACILITY Condition: Aashish Barajas MD February 04, 2018 10:47
[2018-02-04] MEDS ORDERED: METOPROLOL TARTRATE 5 MG/5 ML VIAL IVS SCH (11:00)
[2018-02-04] MEDS ORDERED: HEPARIN SODIUM - IV 10,000 UNITS/10 ML VIAL IV ONE (11:00)
[2018-02-04] MEDS ORDERED: HEPARIN-D5W 25,000 U/250 ML 250 ML IV SCH (11:00)
[2018-02-04] MEDS ORDERED: METOPROLOL TARTRATE 5 MG/5 ML VIAL ONE (15:04)
--- NOTE | 2018-02-04 15:23 | EKG ---
Date Performed: 02/04/2018 Time Performed: 09:30:49 PTAGE: 48 years EKG: Sinus rhythm WITH FIRST DEGREE AV BLOCK INFERIOR MYOCARDIAL INFARCTION ABNORMAL ECG NO PREVIOUS TRACING There is persistent ST segment elevation with the inferior wall infar ct, so it may be a recent event. There is no prior tracing, so clinical correlation will be important . DOCTOR: Barbie Quiñonez Interpretating Date/Time 02/04/2018 15:22:08
--- NOTE | 2018-02-04 15:23 | EKG ---
Date Performed: 02/04/2018 Time Performed: 10:17:25 PTAGE: 48 years EKG: Sinus rhythm INFERIOR MYOCARDIAL INFARCTION The inferior wall infarct is of indeterminate age and possibly recent or acute. Clinical correlation will be important, but there is no serial change in this EKG since e prior tracing. PREVIOUS TRACING : 02/04/2018 09.30 DOCTOR: Barbie Quiñonez Interpretating Date/Time 02/04/2018 15:22:53
[2018-02-04] MEDS ORDERED: IOHEXOL 350 MG/ML 100 ML BTL (for Cath Lab) OTHER ONE (15:35)
[2018-02-04] MEDS ORDERED: MIDAZOLAM HCL 5 MG/5 ML VIAL ONE (15:42)
[2018-02-04] MEDS ORDERED: ATORVASTATIN 40 MG TAB PO ONE (16:00)
[2018-02-04] MEDS ORDERED: GEMFIBROZIL 600 MG TAB PO SCH (16:00)
[2018-02-04] MEDS ORDERED: CYANOCOBALAMIN 1000 MCG/ML VIAL SQ SCH (16:00)
[2018-02-04] MEDS ORDERED: SODIUM CHLORIDE 0.9% FLUSH 10 ML FLUSH IV FLUSH PRN (16:00)
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
[2018-02-04] MEDS ORDERED: MIDAZOLAM HCL 2 MG/2 ML VIAL ONE ×2 (16:44→16:53)
[2018-02-04] MEDS ORDERED: LIDOCAINE HCL 1% PF 30 ML VIAL ONE (16:54)
[2018-02-04] MEDS ORDERED: HEPARIN SODIUM - IV 10,000 UNITS/10 ML VIAL ONE (16:57)
[2018-02-04] MEDS ORDERED: HEPARIN SODIUM - IV 10,000 UNITS/10 ML VIAL IV PRN ×2 (17:00)
[2018-02-04] MEDS ORDERED: TICAGRELOR 90 MG TAB PO ONE (17:20)
[2018-02-04] MEDS ORDERED: SODIUM CHLOR 0.9% 1000 ML INJ 1,000 ML IV SCH (17:45)
[2018-02-04] MEDS ORDERED: MISC INFORMATION XX ONE (17:45)
--- NOTE | 2018-02-04 17:46 | CATHPROC ---
[facility] HIS Report Study Information Study Number Admission Scheduled Start Study Start [id number] Feb 04 2018 8:40AM 02/04/2018 Feb 04 2018 3:14PM Kimberly Service Cardiac Catheterization Admit Source Facility Department Other [facility] - Machine Shop Apprentice Physician and Clinical Staff Initial Gina Hancock City Engineerwarren Smith RN, Tom City EngineerUriel Puente,RN Other Erika Coronel ,RT(R) Recorder Beverley Gutierrez,ARCHITECTURAL DESIGNER TECH2 Scrub Jhony Wall,RT(R) Procedures Performed Procedure Location (Site) Vessel Name Angiogram LV LV Ventricle Coronary Angiograms LCA Left Coronary Coronary Angiograms RCA Right Coronary L Heart Cath PTCA RCA Mid Right Coronary Stent RCA Mid Right Coronary Wire insertion Fem Art (right) Femoral Art Equipment Time Rn Procedures Description Size Mfg Part Number Used/Scraped WIRE, BALANCE MIDDLEWEIGHT [id number] 16:57 [employer]KE [employer] 190CM Used 190CM *[id number] TRANSDUCER, TRUWAVE [id number] 15:38 LOO ALVAREZ * Used W/DTTCOCK *[id number] [id number] *[id number] [id number] *[id number] [id number] *[id number] 17:21 DAIG/ST. HEVER MEDICAL ANGIOSEAL, FR6 VIP FR 6 Used *[id number] 15:38 MEDLINE INDUSTRIES PACK, CCL CUSTOM * Used *[id number] 15:38 MEDLINE PACER PEN, SKIN DUAL W/ RULER * Used *[id number] 17:04 MEDTRONIC BALLOON, 2.5 X 15MM EUPHORA 15MM Used *[id number] 15:46 MEDTRONIC JL 4.0 DXTERITY CATHETER FR 5 Used *[id number] 17:15 MEDTRONIC STENT, 4.0 26 INTEGRITY 4.0 26 Used *[id number] 17:07 Spacebar 30 MAYRA INDEFLATOR Used *[id number] SHEATH, FR6 RADIAL PRELUDE 17:01 Bitmenu MEDICAL FR 6 [id number] Used EASE 11CM [id number] 16:58 Spacebar SHEATH, FR6.5 PRELUDE 11CM FR 6.5 038ACT Used *[id number] 15:38 Spacebar WIRE, 3MMJ .035 180CM 180CM Used *[id number] PROBE COVER, STERILE [id number] 15:38 AugureEK MEDICAL * Used ULTRASOUND W/ GEL *[id number] 15:38 NAMIC MANIFOLD, 4 PORT * Used *[id number] 15:38 NAMIC TUBING, HIGH PRESSURE 48" 48" Used *[id number] 15:38 NYCOMED OMNIPAQUE, 350 MG, 150ML 150ML [id number] Used 16:47 NYCOMED OMNIPAQUE, 350 MG, 50ML 50ML [id number] Used [id number] 15:38 [place] MED[employer] BLANKET,WARM AIR CCL * Used *[id number] [id number] 15:38 TERUMO MEDICAL SHEATH, FR5 TERUMO (10CM) FR 5 Used *[id number] Equipment Model, Serial, Lot Number and Expiration Data Description Model Number Serial Number Lot Number Expiration Date ANGIOSEAL, FR6 VIP [id number] 09-03-2018 JL 4.0 DXTERITY CATHETER [id number] 06-24-2020 STENT, 4.0 26 INTEGRITY [id number] 07-24-2019 History: Current Medications Medication Dosage/Unit Route Frequency Last Date/Time Taken CARDIZEM TRAMADOL Statins (any) LANTUS Synthroid History: Allergies Allergy Reaction No Known Allergies History: Risk Factors Family History of Hypertension Dyslipidemia Previous MN Previous Heart Failure Premature CAD Yes Yes No No No Prior Valve Prior PCI Prior CABG Surgery No No No Cerebrovascular Peripheral Artery Chronic Lung On Dialysis Diabetes Diabetes Therapy Disease Disease Disease No No No No Yes Oral History: Risk Factors Selection Items Current Smoker History: Symptoms/Diagnosis Selection Items Chest pain History: Stress Tests Stress or Imaging Studies Performed No History: Other Current Smoker Method Years Used Yes Cigarettes 27 Labs Hgb (g/dl) Hct (%) WBC (l/cumm) Platelets (thousands) 11.60-17.00 35.00-51.00 4.00-11.00 150.00-450.00 13.3 38.4 10.1 105 Glucose (mg/dl) BUN (mg/dl) Creatinine (mg/dl) BUN:Creatinine (1:x) 74.00-106.00 7.00-18.00 0.50-1.30 10.00-20.00 170 22 0.8 27.5 Na (meq/l) K (meq/l) 136.00-145.00 3.50-5.10 133 4.3 INR (PTT:PT) 0.90-1.10 1 Troponin I (ng/ml) CPK (u/l) CPK-MB (ng/ML) 0.02-0.05 26.00-308.00 0.50-3.60 5.69 525 59.3 Medication Medication Total Dose (Bolus/Oral) Medication Total Dosage/Unit 1% XYLOCAINE 20 mL BRILINTA 180 mg FENTANYL 250 mcg HEPARIN 8000 units NTG (IC) 200 mcg OXYGEN 6 l/min VERSED 9 mg Medications (Bolus/Oral) Medication Time Given Dosage/Unit Administered By Reason OXYGEN 02/04/2018 3:39:50 PM 2 l/min Patient arrived on 2 l/min OXYGEN via Nasal. OXYGEN 02/04/2018 4:29:29 PM 4 l/min Tom Smith RN 4 l/min OXYGEN given in lab by Tom Smith RN via Nasal. VERSED 02/04/2018 4:36:48 PM 3 mg Tom Smith RN 3 mg VERSED given in lab by Tom Smith RN in Left Hand via Peripheral IV. Ordered by Corwin Godwin 1% XYLOCAINE 02/04/2018 4:36:49 PM 20 mL Gina Godwin 20 mL 1% XYLOCAINE given in lab by Gina Godwin in Right Groin via Subcutaneous. Ordered by Gina Ferris. FENTANYL 02/04/2018 4:37:20 PM 50 mcg Tom Smith RN 50 mcg FENTANYL given in lab by Luis PAIGE, Tom in Left Hand via Peripheral IV. Ordered by Christin Godwin. FENTANYL 02/04/2018 4:39:07 PM 50 mcg Tom Smith RN 50 mcg FENTANYL given in lab by Luis PAIGE, Tom in Left Hand via Peripheral IV. Ordered by Christin Godwin. VERSED 02/04/2018 4:41:27 PM 1 mg Luis PAIGE, Tom 1 mg VERSED given in lab by Tom Smith RN in Left Hand via Peripheral IV. Ordered by Corwin Godwin VERSED 02/04/2018 4:43:28 PM 1 mg Luis PAIGE, Tom 1 mg VERSED given in lab by Tom Smith RN in Left Hand via Peripheral IV. Ordered by Corwin Godwin FENTANYL 02/04/2018 4:44:39 PM 50 mcg Tom Smith RN 50 mcg FENTANYL given in lab by Tom Smith RN in Left Hand via Peripheral IV. Ordered by Christin Godwin. VERSED 02/04/2018 4:46:23 PM 2 mg Luis PAIGE, Tom 2 mg VERSED given in lab by Tom Smith RN in Left Hand via Peripheral IV. Ordered by Corwin Godwin FENTANYL 02/04/2018 4:50:26 PM 50 mcg Luis PAIGE, Tom 50 mcg FENTANYL given in lab by Tom Smith RN in Left Hand via Peripheral IV. Ordered by Christin Godwin. HEPARIN 02/04/2018 4:58:17 PM 8000 units Lokesh, Uriel 8000 units HEPARIN given in lab by Uriel Campa RN in Left Hand via Peripheral IV. Ordered by Gina Ferris. VERSED 02/04/2018 4:59:44 PM 1 mg Lokesh, Uriel 1 mg VERSED given in lab by Uriel Campa RN in Left Hand via Peripheral IV. Ordered by Winsome Godwin NTG (IC) 02/04/2018 5:12:43 PM 200 mcg Gina Godwin 200 mcg NTG (IC) given in lab by Gina Godwin via Intra-coronary to RCA. Ordered by Corwin Godwin VERSED 02/04/2018 5:19:07 PM 1 mg Loeksh, Uriel 1 mg VERSED given in lab by Uriel Campa RN in Left Hand via Peripheral IV. Ordered by Winsome Godwin FENTANYL 02/04/2018 5:21:13 PM 50 mcg Lokesh, Uriel 50 mcg FENTANYL given in lab by Uriel Campa RN in Left Hand via Peripheral IV. Ordered by Gina Godwin. BRILINTA 02/04/2018 5:35:04 PM 180 mg Lokesh, Uriel 180 mg BRILINTA given in lab by Uriel Campa RN via Oral. Ordered by Gina Godwin. Medication (Drip) Medication Time Given Dosage/Unit Concentration/Unit Diluent (ml) Solution IV Solutions 02/04/2018 3:41:24 PM 0 mL (IV) 500 NaCl .9 Patient arrived on IV Solutions in Left Hand via Peripheral IV. Pump/Drip Flow = 20 ml/hr using NaCl .9. Initial Case Assessment Cardiovascular HR Rhythm NIBP Chest Pain 90 sr 142/90 0 Circulatory - Right Pulses Dorsalis Pedis Femoral 1 2 Scale (0,1,2,3,4,d) Circulatory - Left Pulses Dorsalis Pedis Femoral 1 2 Scale (0,1,2,3,4,d) Neurological State Oriented to time-place- Alert Moves all extremities person Respiration - General Respiration Rate SpO2 (%) O2 (lpm) (B/min) 20 94 0 Final Case Assessment Cardiovascular HR Rhythm NIBP Chest Pain 101 st 162/98 0 Circulatory - Right Pulses Dorsalis Pedis Femoral 1 2 Scale (0,1,2,3,4,d) Circulatory - Left Pulses Dorsalis Pedis Femoral 0 2 Scale (0,1,2,3,4,d) Neurological State Oriented to time-place- Alert Moves all extremities person Respiration - General Respiration Rate SpO2 (%) (B/min) 10 98 Chronological Log Time Study Chronological Log 15:35:49 Patient arrived via Bed. 15:35:50 Patient Name, D.O.B, / Armband Verified By R.N. 15:35:51 Consent signed by the physician and the patient and verified by the Machine Shop Apprentice staff. 15:35:53 Pre-op and post- op instructions given; patient acknowledges understanding of instructions. Vitals capture started with the following parameters, Patient=Adult, Interval=5 min, Initial Pr dhztlv=077 mmHg, 15:38:53 Deflation Rate=5 mmHg, Cuff placed on Left Arm 15:39:42 HR=94 bpm, LRBU=061/90 mmhg, SpO2=96 % 15:39:50 Patient arrived on 2 l/min OXYGEN via Nasal. 15:40:58 Verbal Stimulation=2 Physical Stimulation=2 Airway=2 Respiration=2 TOTAL=8. (0=absent, 1=li mited, 2=present) 15:41:09 Presedation assessment performed by Machine Shop Apprentice RN. 15:41:11 Patient has been NPO for More than 6Hrs. 15:41:12 Skin Breakdown-none 15:41:13 Eligio Prominences Protected 15:41:15 A # 20 IV was noted in the Hand (left). Grade = 0 15:41:24 Patient arrived on IV Solutions in Left Hand via Peripheral IV. Pump/Drip Flow = 20 ml/hr u sing NaCl .9. 15:41:39 History and physical on the chart or being dictated. Assessment: Initial Case, HR=90 BPM, Rhythm=sr, AGZK=885/90 mmhg, Chest Pain=0 Right Pulses: Tee Ped=1, Femoral=2 15:41:41 Left Pulses: Tee Ped=1, Femoral=2 Neurological: State=Alert, Ox3, DOMINGUEZ Respiration: Resp=20 B/min, SpO2=94 %, O2=0 lpm 15:44:41 HR=95 bpm, EKEG=670/78 mmhg, SpO2=95.0 %, Resp=12 B/min 15:47:51 Bilateral groins prepped with 2% chlorhexidine, and draped after a 3 minute waiting time. 15:49:40 HR=91 bpm, FLXJ=037/81 mmhg, SpO2=96.0 %, Resp=13 B/min 15:51:19 Reference ECG taken 15:54:10 MD paged 15:54:17 MD responded 15:54:37 HR=93 bpm, QOEC=228/89 mmhg, SpO2=95.0 %, Resp=16 B/min 15:54:58 Pressure channel 1 zeroed. 15:59:36 HR=94 bpm, QATS=936/88 mmhg, SpO2=96.0 %, Resp=16 B/min 16:04:37 HR=96 bpm, VEBS=829/91 mmhg, SpO2=95.0 %, Resp=15 B/min, Bey=2 16:09:38 HR=97 bpm, EWOH=118/91 mmhg, SpO2=94.0 %, Resp=13 B/min, Bey=2 16:15:12 HR=95 bpm, MCYS=909/84 mmhg, Resp=10 B/min 16:21:51 Vitals capture stopped. Vitals capture started with the following parameters, Patient=Adult, Interval=5 min, Initial Pr adjxmo=137 mmHg, 16:22:20 Deflation Rate=5 mmHg, Cuff placed on Left Arm 16:23:19 HR=96 bpm, HUHC=492/95 mmhg, SpO2=92.0 %, Resp=16 B/min 16:28:02 HR=92 bpm, HDRN=321/89 mmhg, SpO2=92.0 %, Resp=7 B/min 16:29:29 4 l/min OXYGEN given in lab by Tom Smith RN via Nasal. 16:33:01 HR=93 bpm, XUEH=413/93 mmhg, Resp=13 B/min 16:34:10 MD arrived. Time Out. Correct patient, correct procedure, correct physician, power injector loaded, or not loaded with contrast with 16:36:24 surgical team present. Time Out Concurred by MD and individual staff in procedure. 16:36:26 Case Start 16:36:48 3 mg VERSED given in lab by Tom Smith RN in Left Hand via Peripheral IV. Ordered by Gina Ansari. 16:36:49 20 mL 1% XYLOCAINE given in lab by Gina Godwin in Right Groin via Subcutaneous. Ordered by Gina Godwin. 16:37:20 50 mcg FENTANYL given in lab by Tom Smith RN in Left Hand via Peripheral IV. Ordered by Gina Godwin. 16:38:02 HR=91 bpm, PTZR=772/93 mmhg, SpO2=98.0 %, Resp=11 B/min 16:39:07 50 mcg FENTANYL given in lab by Tom Smith RN in Left Hand via Peripheral IV. Ordered by Gina Godwin. 16:41:27 1 mg VERSED given in lab by Tom Smith RN in Left Hand via Peripheral IV. Ordered by Gina Ansari. 16:43:11 HR=88 bpm, NHSD=857/65 mmhg, SpO2=99.0 %, Resp=12 B/min 16:43:28 1 mg VERSED given in lab by Tom Smith RN in Left Hand via Peripheral IV. Ordered by Gina Ansari. 16:44:25 Access site was Right Femoral Artery. 16:44:39 50 mcg FENTANYL given in lab by Tom Smith RN in Left Hand via Peripheral IV. Ordered by Gina Godwin. 16:45:53 A SHEATH, FR5 TERUMO (10CM) FR 5 was advanced into the Fem Art (right) using the Percutaneo us technique. 16:46:23 2 mg VERSED given in lab by Tom Smith RN in Left Hand via Peripheral IV. Ordered by Gina Ansari. A PIGTAIL ANG. INFINITI CATHETER FR 5 was advanced over a wire. OMNIPAQUE, 350 MG, 50ML 50ML wa s used for 16:46:37 injections. Recorded Pressure: LV, HR=88, Condition=Condition 1 16:47:12 (Left Ventricle) LV 152/15/22 16:47:19 Activated Clotting Time Drawn 16:48:33 HR=95 bpm, UTUN=447/92 mmhg, SpO2=98.0 %, Resp=12 B/min 16:48:41 The LV was injected at 10 cc/sec for a total of 30. OMNIPAQUE, 350 MG, 50ML 50ML used. Recorded Pressure: LV, Ao, HR=93, Condition=Condition 1 16:49:10 (Left Ventricle) LV 146/15/20, (Aorta) Ao 143/91/115 16:49:46 ACT (Normal Range 90-180) = 138 After removing the current catheter a JL 4.0 DXTERITY CATHETER FR 5 was advanced over a WIRE, 3 MMJ .035 180CM 16:50:00 180CM. 16:50:26 50 mcg FENTANYL given in lab by Tom Smith RN in Left Hand via Peripheral IV. Ordered by Gina Godwin. 16:50:45 The LCA was injected and visualized at various angles. OMNIPAQUE, 350 MG, 150ML 150ML used . After removing the current catheter a AR MOD INFINITI CATHETER FR 5 was advanced over a WIRE, 3 MMJ .035 180CM 16:52:36 180CM. 16:53:05 HR=95 bpm, EUIC=021/93 mmhg, SpO2=97.0 %, Resp=16 B/min 16:53:25 The RCA was injected and visualized at various angles. OMNIPAQUE, 350 MG, 150ML 150ML used . 16:57:32 Catheter was removed A SHEATH, FR6.5 PRELUDE 11CM FR 6.5 was exchanged in the Fem Art (right). This was necessary in order to 16:57:40 accomodate a larger catheter. 16:58:17 8000 units HEPARIN given in lab by Uriel Campa RN in Left Hand via Peripheral IV. Ordered by Gina Godwin. 16:58:43 HR=98 bpm, KFFU=403/98 mmhg, SpO2=98.0 %, Resp=11 B/min 16:59:17 A AR 1 GUIDE CATHETER FR 6 was advanced over a wire. OMNIPAQUE, 350 MG, 150ML 150ML was use d for injections. 16:59:37 The RCA was injected and visualized at various angles. OMNIPAQUE, 350 MG, 150ML 150ML used . 16:59:44 1 mg VERSED given in lab by Uriel Campa RN in Left Hand via Peripheral IV. Ordered by Gina Adam. 17:00:39 A WIRE, BALANCE MIDDLEWEIGHT 190CM 190CM was inserted via Fem Art (right). 17:02:05 Interventional wire has crossed the lesion 17:02:55 Activated Clotting Time Drawn 17:03:50 SI=783 bpm, RULX=420/96 mmhg, SpO2=98.0 %, Resp=17 B/min 17:04:01 A balloons was inserted over WIRE, BALANCE MIDDLEWEIGHT 190CM 190CM via the RCA Mid. A BALLOON, 2.5 X 15MM EUPHORA 15MM over a WIRE, BALANCE MIDDLEWEIGHT 190CM 190CM in the RCA Mid was 17:07:10 inflated using a 30 MAYRA INDEFLATOR at 17 mayra for 25 sec. 17:08:53 FC=007 bpm, XFAG=948/96 mmhg, SpO2=99.0 %, Resp=18 B/min 17:10:54 ACT (Normal Range 90-180) = 368 17:12:25 Balloon Removed. 17:12:43 200 mcg NTG (IC) given in lab by Gina Godwin via Intra-coronary to RCA. Ordered by Gina Ansari. 17:13:09 KT=783 bpm, VFMF=812/98 mmhg, DuQ7=075.0 %, Resp=15 B/min An STENT, 4.0 26 INTEGRITY 4.0 26 Bare Metal Stent was inserted through a AR 1 GUIDE CATHETER F R 6 over a 17:13:12 WIRE, BALANCE MIDDLEWEIGHT 190CM 190CM. A STENT, 4.0 26 INTEGRITY 4.0 26 was deployed using a 30 MAYRA INDEFLATOR at 19 atmospheres for 3 0 seconds in 17:15:41 the RCA Mid. 17:16:43 Delivery device removed 17:18:11 EJ=877 bpm, TUIB=775/100 mmhg, SpO2=98.0 %, Resp=15 B/min 17:19:07 1 mg VERSED given in lab by Uriel Campa RN in Left Hand via Peripheral IV. Ordered by Gnia Adam. 17:19:16 Wire removed 17:19:43 Guide Catheter was removed 17:20:08 Case End 17:20:12 An injection in the Fem Art (right) was made through the SHEATH, FR6.5 PRELUDE 11CM FR 6.5. 17:20:41 Access site prepped with betadine for closure device. 17:21:13 50 mcg FENTANYL given in lab by Uriel Campa, RN in Left Hand via Peripheral IV. Ordered by Gina Godwin. 17:23:12 RA=829 bpm, AUHN=384/109 mmhg, SpO2=99.0 %, Resp=10 B/min 17:24:44 ANGIOSEAL, FR6 VIP FR 6 placement in the Fem Art (right) manual pressure held for 5 min 17:28:13 MW=575 bpm, KSCR=737/98 mmhg, SpO2=93 %, Resp=20 B/min 17:31:17 Cine recording checked. 17:31:26 No case complications noted. 17:31:30 Sterile dressing applied to site 17:33:12 HR=98 bpm, LOPF=206/105 mmhg, Resp=10 B/min 17:35:04 180 mg BRILINTA given in lab by Uriel Campa, RN via Oral. Ordered by iGna Godwin. 17:40:07 Vitals capture stopped. Assessment: Final Case, DA=461 BPM, Rhythm=st, LBHN=593/98 mmhg, Chest Pain=0 Right Pulses: Tee Ped=1, Femoral=2 17:40:25 Left Pulses: Tee Ped=0, Femoral=2 Neurological: State=Alert, Ox3, DOMINGUEZ Respiration: Resp=10 B/min, SpO2=98 % 17:41:23 Patient moved to bed 17:45:33 A Left Heart Cath was performed. End Study - Contrast Media Used In Study Contrast Total Opened (mL) Total Used (mL) Total Wasted (mL) Omnipaque 185 185 0 End Study - Maximum Contrast Load Max Contrast Load (mL) 706.3 End Study - Radiation Exposure Fluoro Time (minutes) 6.4 End Study - Sheaths Sheaths Pulled By Sheath Hold Time (min) Jhony Wall End Study - Patient Fluids IV Intake (mL) Total Output (mL) 800 End Study - Patient Disposition Complications Transferred To Interventional Outcome No Critical Care Bed successful
[2018-02-04] MEDS ORDERED: OMEGA ACID ETHYL ESTERS PO SCH (18:00)
[2018-02-04] MEDS: GABAPENTIN 400 MG CAP PO SCH (18:00)
--- NOTE | 2018-02-04 18:05 | MR ---
cc: Gina Gdowin MD DATE: 02/04/2018 INDICATION: Non-ST elevation myocardial infarction, class IV angina, diabetes mellitus. PROCEDURE PERFORMED: 1. Retrograde left heart catheterization with left ventriculography and selective coronary angiography. 2. Angioplasty and stenting of the mid right coronary artery. 3. Moderate sedation. ACCESS SITE: Right femoral artery using ultrasound guidance. EQUIPMENT USED: A 5-Greek pigtail catheter, 5-Greek JL4 and AR modified coronary artery catheters, AR1 guide, BMW wire, 2.5 x 15 mm balloon for predilatation, 4.0 x 26 mm Integrity stent at 19 atmospheres. MEDICATIONS: Versed IV, fentanyl IV, heparin IV, nitroglycerin IC, Brilinta 180 mg p.o. CONTRAST: Omnipaque 185 mL. COMPLICATIONS: None. BLOOD LOSS: Less than 10 mL METHOD OF HEMOSTASIS: Angio-Seal closure. RESULTS: HEMODYNAMICS: Heart rate 98 beats per minute. Left ventricular end diastolic pressure 15 mmHg, left ventricle 145/15, aorta 145/91/115. Left ventricular ejection fraction 40%. Wall motion inferior hypokinesis, no mitral regurgitation. CORONARY ANGIOGRAPHY: Left main coronary patent. Left anterior descending artery patent. D1 large, patent. Left circumflex artery patent. OM1 large, patent. OM2 small with 40% ostial stenosis. Right coronary artery is a large, dominant vessel with 95% stenosis in the mid portion. PDA patent. PLV patent. There is stenosis in the mid RCA. It was 95%. Lesion length of 21 mm. Pre-MAX flow 2. Post-MAX flow 3. Post-stenosis zero. Post intervention angiography revealed excellent patency of the stented segment and no evidence of dissection, thrombosis, or distal embolization. DIAGNOSES: 1. Non-ST elevation myocardial infarction. 2. Coronary artery disease with a severe 95% stenosis of the mid right coronary artery. 3. Successful angioplasty and stenting of the mid to right coronary artery. 4. Moderate left ventricular systolic dysfunction, consistent with ischemic cardiomyopathy. DISPOSITION: Ms. Liz will continue therapy with Brilinta for at least 3 months and aspirin indefinitely, but will continue aggressive modification of her cardiac risk factors. We will continue therapy for her left ventricular dysfunction. She will follow up with her primary physician, Dr. Adriana Glover, in her office after discharge. MD BEULAH Zabala , 05:44 PM , 06:05 PM
[2018-02-04] MEDS: METOPROLOL TARTRATE 50 MG TAB PO SCH (19:02)
[2018-02-04] MEDS: oxyCODONE/ACETAMINOPHEN 10 MG/325 MG TAB PO PRN (19:18)
[2018-02-04] MEDS: RAMIPRIL 5 MG CAP PO SCH (19:19)
[2018-02-04] MEDS: CYCLOBENZAPRINE HCL 10 MG TAB PO SCH (20:06)
[2018-02-04] MEDS: SODIUM CHLORIDE 0.9% FLUSH 10 ML FLUSH IV FLUSH SCH (20:06)
[2018-02-04] MEDS: DULoxetine HCl DR 60 MG CAP PO SCH (20:06)
[2018-02-04] MEDS: PANTOPRAZOLE SOD 40 MG DELAYED RELEASE TAB PO SCH (20:06)
[2018-02-04] MEDS: REMOVE OLD PATCH T-DERMAL SCH (20:07)
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
[2018-02-04] MEDS ORDERED: METOPROLOL TARTRATE 25 MG TAB PO SCH (21:00)
[2018-02-04 22:10] LABS: AUTOMATED NEUTROPHIL # 4.6 TH/MM3 (1.8-7.7); BASOPHIL % 0.3 % (0.0-2.0); EOSINOPHIL % 0.3 % (0.0-4.0); HEMATOCRIT 34.8 % (35.0-46.0); HEMOGLOBIN 11.9 GM/DL (11.6-15.3); MEAN CELL VOLUME 84.4 FL (80.0-100.0); MEAN CORPUSCULAR HEMOGLOBIN 28.9 PG (27.0-34.0); MEAN CORPUSCULAR HGB CONC 34.2 % (32.0-36.0); MEAN PLATELET VOLUME 8.1 FL (7.0-11.0); MONO % 5.7 % (0.0-8.0); MONOCYTE # 0.4 TH/MM3 (0-0.9); NEUT % 64.7 % (16.0-70.0); PLATELET COUNT 75 TH/MM3 (150-450); RED BLOOD COUNT 4.13 MIL/MM3 (4.00-5.30); RED CELL DISTRIBUTION WIDTH 15.2 % (11.6-17.2)
[2018-02-04] MEDS ORDERED: ACETAMINOPHEN/HYDROcodone 325 MG/5 MG TAB PO ONE (23:15)
[2018-02-05] VITALS (16 sets, daily range): BP systolic 118–152; BP diastolic 80–90; PULSE 89–117; RESP 16–21; TEMP 97.8–98.5; O2SAT 95–96
[2018-02-05] MEDS: oxyCODONE/ACETAMINOPHEN 10 MG/325 MG TAB PO PRN (03:45)
[2018-02-05 04:38] LABS: AUTOMATED NEUTROPHIL # 3.7 TH/MM3 (1.8-7.7); BASOPHIL % 0.4 % (0.0-2.0); EOSINOPHIL # 0.1 TH/MM3 (0-0.4); EOSINOPHIL % 0.8 % (0.0-4.0); HEMATOCRIT 36.6 % (35.0-46.0); HEMOGLOBIN 12.5 GM/DL (11.6-15.3); LYMPH % 36.8 % (9.0-44.0); LYMPHOCYTE # 2.4 TH/MM3 (1.0-4.8); MEAN CELL VOLUME 85.2 FL (80.0-100.0); MEAN CORPUSCULAR HEMOGLOBIN 29.2 PG (27.0-34.0); MEAN CORPUSCULAR HGB CONC 34.2 % (32.0-36.0); MEAN PLATELET VOLUME 7.9 FL (7.0-11.0); MONO % 6.6 % (0.0-8.0); MONOCYTE # 0.4 TH/MM3 (0-0.9); NEUT % 55.4 % (16.0-70.0); PLATELET COUNT 75 TH/MM3 (150-450); RED BLOOD COUNT 4.29 MIL/MM3 (4.00-5.30); RED CELL DISTRIBUTION WIDTH 15.8 % (11.6-17.2); WHITE BLOOD COUNT 6.6 TH/MM3 (4.0-11.0)
[2018-02-05 05:18] LABS: HDL CHOLESTEROL 30.8 MG/DL (40.0-60.0)
[2018-02-05 05:21] LABS: BICARBONATE 23.8 MEQ/L (21.0-32.0); CALCIUM 8.7 MG/DL (8.5-10.1); CHOLESTEROL/ HDL RATIO 7.2 RATIO; CREATININE 0.91 MG/DL (0.50-1.00)
[2018-02-05] MEDS ORDERED: LEVOTHYROXINE SODIUM 50 MCG TAB PO SCH (06:00)
[2018-02-05] MEDS: METOPROLOL TARTRATE 50 MG TAB PO SCH (08:48)
[2018-02-05] MEDS: PANTOPRAZOLE SOD 40 MG DELAYED RELEASE TAB PO SCH (08:48)
[2018-02-05] MEDS: RAMIPRIL 5 MG CAP PO SCH (08:48)
[2018-02-05] MEDS: GABAPENTIN 400 MG CAP PO SCH ×2 (08:48→11:45)
[2018-02-05] MEDS: DULoxetine HCl DR 60 MG CAP PO SCH (08:48)
[2018-02-05] MEDS: CYCLOBENZAPRINE HCL 10 MG TAB PO SCH (08:48)
[2018-02-05] MEDS: METOCLOPRAMIDE HCL 10 MG TAB PO SCH ×2 (08:50→11:44)
[2018-02-05] MEDS: SODIUM CHLORIDE 0.9% FLUSH 10 ML FLUSH IV FLUSH SCH (08:50)
[2018-02-05] MEDS: REMOVE OLD PATCH T-DERMAL SCH (08:50)
[2018-02-05] MEDS ORDERED: TICAGRELOR 90 MG TAB PO SCH (09:00)
[2018-02-05] MEDS ORDERED: ESTRADIOL 1 MG TAB PO SCH (09:00)
[2018-02-05] MEDS ORDERED: RAMIPRIL 5 MG CAP PO SCH (09:00)
[2018-02-05] MEDS ORDERED: ASPIRIN 81 MG CHEW TAB PO SCH (09:00)
[2018-02-05] MEDS ORDERED: ATORVASTATIN 40 MG TAB PO SCH ×2 (09:00)
[2018-02-05] MEDS ORDERED: DILTIAZEM-CD 180 MG CAP ER PO SCH (09:00)
[2018-02-05] MEDS ORDERED: LIDOCAINE HCL 5% PATCH T-DERMAL SCH (09:00)
[2018-02-05] MEDS ORDERED: CARD180C5 PO (11:50)
[2018-02-05] MEDS ORDERED: METO-309 PO (11:50)
[2018-02-05] MEDS ORDERED: BRIL90TA PO (11:50)
[2018-02-05] MEDS ORDERED: ATOR40TA16 PO (11:50)
[2018-02-05] MEDS ORDERED: RAMI5CAP PO (11:50)
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
--- NOTE | 2018-02-05 14:45 | PD.CARD.PN ---
Subjective Subjective Remarks No CP or SOB, feels better Objective Vital Signs / I&O Vital Signs Date Time Temp Pulse Resp B/P (MAP) Pulse Ox O2 Delivery O2 Flow Rate FiO2 02/05/18 13:00 96 02/05/18 12:00 94 02/05/18 11:28 98.1 89 16 149/90 (109) 96 02/05/18 11:00 96 02/05/18 10:00 116 02/05/18 09:00 106 02/05/18 08:00 97 02/05/18 07:32 97.8 97 16 152/88 (109) 96 02/05/18 07:00 92 02/05/18 06:04 93 02/05/18 05:01 111 02/05/18 04:50 91 02/05/18 03:40 98.5 102 21 118/80 (93) 95 02/05/18 03:40 101 02/05/18 02:40 98 02/05/18 01:30 117 02/05/18 00:00 100 02/04/18 23:50 98.5 87 20 147/94 (111) 94 02/04/18 23:00 88 02/04/18 22:00 104 02/04/18 21:00 94 02/04/18 20:10 92 02/04/18 19:50 98.6 89 20 153/93 (113) 98 02/04/18 19:50 97 02/04/18 18:13 97.8 98 18 173/99 (123) 94 I/O 02/04/18 02/04/18 02/04/18 02/05/18 02/05/18 02/05/18 07:00 15:00 23:00 07:00 15:00 23:00 Intake Total 1080 ml Output Total 300 ml Balance 780 ml Intake Oral 1080 ml Output Urine Total 300 ml # Voids 5 Physical Exam GENERAL: In NAD. SKIN: Warm and dry. HEAD: Normocephalic. EYES: No scleral icterus. No injection or drainage. NECK: Supple, trachea midline. No JVD or lymphadenopathy. CARDIOVASCULAR: Regular rate and rhythm without murmurs, gallops, or rubs. RESPIRATORY: Breath sounds equal bilaterally. No accessory muscle use. GASTROINTESTINAL: Abdomen soft, non-tender, nondistended. MUSCULOSKELETAL: No cyanosis, or edema. Groin stable. Laboratory Laboratory Tests Test 02/04/18 19:36 02/04/18 21:30 02/05/18 04:00 02/05/18 04:08 Activated Partial Thromboplast Time 28.1 SEC Thyroid Stimulating Hormone 3rd Gen 1.330 uIU/ML White Blood Count 7.0 TH/MM3 6.6 TH/MM3 Red Blood Count 4.13 MIL/MM3 4.29 MIL/MM3 Hemoglobin 11.9 GM/DL 12.5 GM/DL Hematocrit 34.8 % 36.6 % Mean Corpuscular Volume 84.4 FL 85.2 FL Mean Corpuscular Hemoglobin 28.9 PG 29.2 PG Mean Corpuscular Hemoglobin Concent 34.2 % 34.2 % Red Cell Distribution Width 15.2 % 15.8 % Platelet Count 75 TH/MM3 75 TH/MM3 Mean Platelet Volume 8.1 FL 7.9 FL Neutrophils (%) (Auto) 64.7 % 55.4 % Lymphocytes (%) (Auto) 29.0 % 36.8 % Monocytes (%) (Auto) 5.7 % 6.6 % Eosinophils (%) (Auto) 0.3 % 0.8 % Basophils (%) (Auto) 0.3 % 0.4 % Neutrophils # (Auto) 4.6 TH/MM3 3.7 TH/MM3 Lymphocytes # (Auto) 2.0 TH/MM3 2.4 TH/MM3 Monocytes # (Auto) 0.4 TH/MM3 0.4 TH/MM3 Eosinophils # (Auto) 0.0 TH/MM3 0.1 TH/MM3 Basophils # (Auto) 0.0 TH/MM3 0.0 TH/MM3 CBC Comment AUTO DIFF AUTO DIFF Differential Comment AUTO DIFF CONFIRMED AUTO DIFF CONFIRMED Platelet Estimate LOW LOW Platelet Morphology Comment NORMAL NORMAL Blood Urea Nitrogen 17 MG/DL Creatinine 0.91 MG/DL Random Glucose 140 MG/DL Calcium Level 8.7 MG/DL Sodium Level 138 MEQ/L Potassium Level 3.9 MEQ/L Chloride Level 103 MEQ/L Carbon Dioxide Level 23.8 MEQ/L Anion Gap 11 MEQ/L Estimat Glomerular Filtration Rate 66 ML/MIN Total Creatine Kinase 476 U/L Creatine Kinase MB 37.9 NG/ML Creatine Kinase MB % 8.0 % Triglycerides Level 2074 MG/DL Cholesterol Level 222 MG/DL LDL Cholesterol MG/DL HDL Cholesterol 30.8 MG/DL Cholesterol/HDL Ratio 7.20 RATIO Assessment and Plan Problem List: (1) NSTEMI (non-ST elevated myocardial infarction) ICD Codes: I21.4 - Non-ST elevation (NSTEMI) myocardial infarction Status: Resolved (2) CAD (coronary artery disease) ICD Codes: I25.10 - Atherosclerotic heart disease of [place] coronary artery without angina pectoris (3) Stented coronary artery ICD Codes: Z95.5 - Presence of coronary angioplasty implant and graft (4) DM type 2 (diabetes mellitus, type 2) ICD Codes: E11.9 - Type 2 diabetes mellitus without complications Status: Chronic (5) HTN (hypertension) ICD Codes: I10 - Essential (primary) hypertension Status: Chronic (6) HLD (hyperlipidemia) ICD Codes: E78.5 - Hyperlipidemia, unspecified Status: Chronic (7) Smoking ICD Codes: F17.200 - Nicotine dependence, unspecified, uncomplicated Assessment and Plan Cath with severe RCA stenosis, stented with BMS. Continue Plavix for at least 3 mo, baby ASA long-term, beta milton, high dose statin. Pt encouraged to quit smoking. [place] home. Will schedule outpt f/u. Problem Qualifiers (1) DM type 2 (diabetes mellitus, type 2): (2) HTN (hypertension): Qualified Codes: I10 - Essential (primary) hypertension (3) HLD (hyperlipidemia): Qualified Codes: E78.5 - Hyperlipidemia, unspecified Gina Godwin MD February 05, 2018 14:45
--- NOTE | 2018-02-05 20:30 | EKG ---
Date Performed: 02/04/2018 Time Performed: 19:50:52 PTAGE: 48 years EKG: Sinus rhythm with borderline 1st degree A-V block Inferior infarct - age undetermined Since the previous tracing, no significant change noted Abnormal ECG PREVIOUS TRACING : 02/04/2018 10.17 DOCTOR: Margie Butt Interpretating Date/Time 02/05/2018 16:48:28
--- NOTE | 2018-02-05 20:33 | EKG ---
Date Performed: 02/05/2018 Time Performed: 03:57:28 PTAGE: 48 years EKG: Sinus rhythm Leftward axis Inferior infarct - age undetermined Since the previous tracing, no significant change noted Abnormal ECG PREVIOUS TRACING : 02/04/2018 19.50 DOCTOR: Margie Butt Interpretating Date/Time 02/05/2018 16:48:38
== END 2018-02-05 13:23 | disposition home or self-care (01) | DRG 249 ==
LOC: PHEFT 08:40 → PHEDA 11:06 → HDIC 14:36 → HCPC 18:00
PROVIDERS: ADMIT Hospitalist; ATTEND Hospitalist
PROC: 4A023N7 Measurement of Cardiac Sampling and Pressure, Left Heart, Percutaneous Approach (ICD-10-PCS; 2018-02-04)
PROC: B2111ZZ Fluoroscopy of Multiple Coronary Arteries using Low Osmolar Contrast (ICD-10-PCS; 2018-02-04)
PROC: B2151ZZ Fluoroscopy of Left Heart using Low Osmolar Contrast (ICD-10-PCS; 2018-02-04)
PROC: 02703DZ Dilation of Coronary Artery, One Artery with Intraluminal Device, Percutaneous Approach (ICD-10-PCS; principal; 2018-02-04 16:00)
DX: I21.4 Non-ST elevation (NSTEMI) myocardial infarction (principal); E11.22 Type 2 diabetes mellitus with diabetic chronic kidney disease; E11.42 Type 2 diabetes mellitus with diabetic polyneuropathy; I25.119 Atherosclerotic heart disease of native coronary artery with unspecified angina pectoris; N18.3 Chronic kidney disease, stage 3 (moderate); E78.5 Hyperlipidemia, unspecified; F17.290 Nicotine dependence, other tobacco product, uncomplicated; G89.21 Chronic pain due to trauma; M54.9 Dorsalgia, unspecified; R11.2 Nausea with vomiting, unspecified; E03.9 Hypothyroidism, unspecified; I12.9 Hypertensive chronic kidney disease with stage 1 through stage 4 chronic kidney disease, or unspecified chronic kidney disease; Z68.37 Body mass index [BMI] 37.0-37.9, adult; Z79.4 Long term (current) use of insulin; M10.9 Gout, unspecified; M25.519 Pain in unspecified shoulder; M54.6 Pain in thoracic spine; E66.9 Obesity, unspecified; E78.1 Pure hyperglyceridemia; I25.5 Ischemic cardiomyopathy
CPT/HCPCS: 71045; 80048; 80061; 82550; 82552; 84443; 84484; 85002; 85007; 85025; 85027; 85610; 85730; 92928; 93005; 93458; 96372; 96374; 99152; 99153; C1725; C1760; C1769; C1876; C1887; C1893; G0269; J1644; J1885; J2250; J3010; J7030; Q9967